=== PATIENT | female | born 1945 | race Caucasian/White ===

== ENCOUNTER 2017-08-18 10:08 | Outpatient (CLI) ==
--- NOTE | 2017-08-18 11:05 | US ---
EXAM: Thyroid ultrasound History: Multinodular goiter. Comparison: None available. Technique: Multiple sonographic images through the thyroid gland were obtained. Color duplex Dopple r was used to interrogate vascular flow. Findings: The right lobe of the thyroid measures 5.9 cm x 2.2 cm x 2.5 cm demonstrates multiple nodules with th e largest being solid and measuring 1.1 cm. The thyroid isthmus measures 1.2 cm in thickness and demonstrates a 1.7 cm complex nodule. The left lobe of the thyroid measures 7.7 cm x 4.1 cm x 3.8 cm and demonstrates multiple nodules. Th e largest measuring 6.6 cm and solid with microcalcifications. No extrathyroidal masses are identified. Thyroid gland is slightly hypervascular. Impression: Enlarged multinodular thyroid gland. Tissue sampling of the dominant left thyroid nodule is recommended.
== END 2017-08-18 10:09 | disposition home or self-care (01) ==
LOC: RAD 10:08
PROVIDERS: ATTEND Internal Medicine Endocrinology, Diabetes & Metabolism
DX: E04.2 Nontoxic multinodular goiter (principal)